=== PATIENT | male | born 1950 | race Caucasian/White ===

== ENCOUNTER 2024-03-19 16:15 | Inpatient (IN) | payer OTHER, MEDICARE, MEDICAID ==
[~2024-03-19] VITALS: Ht 177.8 cm; Wt 63.6 kg
[2024-03-19 16:44] LABS: BASOPHILS # (AUTO) 0.1 X10'3 (0-0.2); BASOPHILS % (AUTO) 1.2 % (0-1); EOSINOPHILS # (AUTO) 0.3 X10'3 (0-0.9); EOSINOPHILS % (AUTO) 3.1 % (0-6); HEMATOCRIT 28.4 % (42.0-52.0); HEMOGLOBIN 9.6 g/dl (14.0-17.9); LYMPHOCYTES # (AUTO) 1.9 X10'3 (1.1-4.8); LYMPHOCYTES % (AUTO) 24.1 % (21-51); MEAN CORPUSCULAR VOLUME 88.3 FL (78-98); MEAN PLATELET VOLUME 8.4 FL (7.4-10.4); MONOCYTES # (AUTO) 0.7 X10'3 (0-0.9); MONOCYTES % (AUTO) 8.4 % (2-12); NEUTROPHILS # (AUTO) 5.1 X10'3 (1.8-7.7); NEUTROPHILS % (AUTO) 63.2 % (42-75); PLATELET COUNT 330 X10'3 (140-440); RED BLOOD COUNT 3.21 X10'6 (4.70-6.10); RED CELL DISTRIBUTION WIDTH 14.7 % (11.5-14.5)
[2024-03-19 17:02] LABS: ALANINE AMINOTRANSFERASE 37 U/L (12-78); ALBUMIN 3.2 G/DL (3.4-5.0); ALBUMIN/GLOBULIN RATIO 0.7 (1.1-1.5); ALKALINE PHOSPHATASE 118 IU/L (46-116); ANION GAP 9 (8-16); ASPARTATE AMINO TRANSFERASE 26 U/L (10-37); BILIRUBIN,TOTAL 0.4 MG/DL (0.1-1.0); BLOOD UREA NITROGEN 42 MG/DL (7-18); CALCIUM 8.8 MG/DL (8.5-10.1); CHLORIDE 105 MMOL/L (99-107); CREATININE 2.21 MG/DL (0.60-1.10); GLUCOSE 133 MG/DL (70-104); POTASSIUM 3.6 MMOL/L (3.5-5.1); SODIUM 140 MMOL/L (135-145); TOTAL CARBON DIOXIDE 25.6 MMOL/L (24-32); eCRCL 28 ML/MIN; eGFR 29 ML/MIN
[2024-03-19 17:13] LABS: PRO BRAIN NATRIURETIC PEPTIDE 23403 PG/ML (0-125)
[2024-03-19] MEDS: aspirin 81mg tab.chew PO ONE (18:34)
[2024-03-19] MEDS ORDERED: carVEDilol 12.5mg tablet PO SCH (18:55)
[2024-03-19] MEDS ORDERED: enoxaparin 100mg/ml syringe SUBCUT ONE (19:00)
[2024-03-19] MEDS: carVEDilol 12.5mg tablet PO ONE (19:13)
[2024-03-19] MEDS: furosemide 10 MG/1 ML 10ml inj IV ONE (19:13)
[2024-03-19] MEDS: enoxaparin 60mg/0.6ml syringe SUBCUT ONE (19:15)
[2024-03-19 19:29] LABS: ETHANOL < 10 MG/DL (<10); MAGNESIUM 2.2 MG/DL (1.5-2.4); PRO BRAIN NATRIURETIC PEPTIDE 24586 PG/ML (0-125)
[2024-03-19 19:40] LABS: APTT 23 SECONDS (22-32); INR 1.1 INR
[2024-03-19] MEDS ORDERED: NO HOME MEDS (20:12)
[2024-03-19] MEDS ORDERED: acetaminophen 325mg tablet PO PRN (21:15)
[2024-03-19] MEDS: PERFLUTREN PROTEIN-A MICROSPHR (Optison) 0.22 MG/ML 3ML VIAL IV ONE (21:15)
[2024-03-19] MEDS ORDERED: magnesium sulf-water 4G/100mL 100 ML IV PRN (21:15)
[2024-03-19] MEDS ORDERED: magnesium sulf-water 2g/50mL 50 ML IV PRN (21:15)
[2024-03-19] MEDS ORDERED: ondansetron/PF 4mg/2ml inj IV PRN (21:15)
[2024-03-19] MEDS ORDERED: morphine 2 MG/ML inj. syringe IV PRN ×2 (21:15)
[2024-03-19] MEDS ORDERED: magnesium Cl slow-release 64mg tablet PO PRN (21:15)
[2024-03-19] MEDS ORDERED: potassium Cl 20 mEq SR tablet PO PRN (21:15)
[2024-03-19] MEDS ORDERED: mag hydrox/Alum hydrox/simeth 30ml oral suspension PO PRN (21:15)
[2024-03-19] MEDS ORDERED: magnesium hydroxide 30ml (MOM) UD suspension PO PRN (21:15)
[2024-03-19] MEDS ORDERED: potassium Cl 40MEQ/1/2NS 520ml 520 ML IV PRN (21:15)
[2024-03-20] MEDS: labetalol 20mg/4ml (5mg/ml) syringe IV ONE (02:16)
[2024-03-20 02:34] LABS: BASOPHILS # (AUTO) 0.1 X10'3 (0-0.2); BASOPHILS % (AUTO) 1.4 % (0-1); EOSINOPHILS # (AUTO) 0.4 X10'3 (0-0.9); EOSINOPHILS % (AUTO) 5.5 % (0-6); HEMATOCRIT 27.2 % (42.0-52.0); LYMPHOCYTES % (AUTO) 24.7 % (21-51); MEAN CORPUSCULAR HEMOGLOBIN 29.1 PG (27.0-31.0); MEAN CORPUSCULAR HGB CONC 32.9 g/dL (33.0-36.5); MEAN CORPUSCULAR VOLUME 88.5 FL (78-98); MEAN PLATELET VOLUME 8.3 FL (7.4-10.4); MONOCYTES # (AUTO) 0.8 X10'3 (0-0.9); NEUTROPHILS # (AUTO) 4.7 X10'3 (1.8-7.7); NEUTROPHILS % (AUTO) 58.4 % (42-75); PLATELET COUNT 313 X10'3 (140-440); RED BLOOD COUNT 3.07 X10'6 (4.70-6.10); RED CELL DISTRIBUTION WIDTH 14.6 % (11.5-14.5); WHITE BLOOD COUNT 8.1 X10'3 (4.5-11.0)
[2024-03-20 02:54] LABS: ALANINE AMINOTRANSFERASE 32 U/L (12-78); ALBUMIN/GLOBULIN RATIO 0.7 (1.1-1.5); ALKALINE PHOSPHATASE 105 IU/L (46-116); ANION GAP 9 (8-16); ASPARTATE AMINO TRANSFERASE 23 U/L (10-37); BILIRUBIN,TOTAL 0.5 MG/DL (0.1-1.0); BLOOD UREA NITROGEN 43 MG/DL (7-18); BUN/CREATININE RATIO 19.5 (10.0-20.0); CALCIUM 8.1 MG/DL (8.5-10.1); CHLORIDE 108 MMOL/L (99-107); CHOL/HDL RATIO 2.7 (0.00-4.99); CHOLESTEROL 181 MG/DL (0-200); CREATININE 2.21 MG/DL (0.60-1.10); GLUCOSE 105 MG/DL (70-104); HDL CHOLESTEROL 66 MG/DL (35-60); LDL CHOLESTEROL 105 MG/DL (50-100); POTASSIUM 3.4 MMOL/L (3.5-5.1); SODIUM 144 MMOL/L (135-145); TOTAL PROTEIN 7.4 G/DL (6.4-8.2); TRIGLYCERIDES 59 MG/DL (20-135); eCRCL 28 ML/MIN; eGFR 29 ML/MIN
[2024-03-20] MEDS: hydrALAZINE 20mg/ml inj. IV ONE (05:56)
[2024-03-20 06:38] VITALS: BP 159/82; PULSE 70; RESP 15; O2SAT 95
[2024-03-20] MEDS: furosemide 10 MG/1 ML 10ml inj IV SCH (07:43)
[2024-03-20] MEDS: potassium Cl 20 mEq SR tablet PO PRN (07:43)
[2024-03-20] MEDS ORDERED: albuterol 2.5 MG/3 ML nebule NEB PRN (07:45)
[2024-03-20] MEDS: K and/or MAG REPLACEMENT MC SCH (07:48)
[2024-03-20] MEDS: heparin, porcine 5000 units/ml vial SQ SCH (07:49)
[2024-03-20] MEDS: docusate sod 100mg capsule PO SCH (07:49)
[2024-03-20] MEDS ORDERED: budesonide 0.5mg/2ml UD nebule IH SCH (08:00)
[2024-03-20 08:26] LABS: BILIRUBIN,URINE NEGATIVE (Neg); CLARITY,URINE CLEAR (Clear); COLOR,URINE YELLOW (Yellow); GLUCOSE, URINE NEGATIVE (Neg); KETONES,URINE NEGATIVE (Neg); LEUKOCYTE ESTERASE ,URINE NEGATIVE (Neg); NITRITES, URINE NEGATIVE (Neg); OCCULT BLOOD,URINE NEGATIVE (Neg); PH,URINE 6.5 (4.8-8.0); PROTEIN,URINE NEGATIVE (Neg); UROBILINOGEN,URINE 0.2 E.U/dL (0.2-1.0)
[2024-03-20 08:27] LABS: UA COLLECTION TYPE VOIDED
[2024-03-20 08:38] LABS: URINE AMPHETAMINE SCREEN POSITIVE (Neg); URINE BARBITUATE SCREEN NEGATIVE (Neg); URINE BENZODIAZEPINES SCREEN NEGATIVE (Neg); URINE CANNABINOID SCREEN NEGATIVE (Neg); URINE COCAINE SCREEN NEGATIVE (Neg); URINE METHADONE SCREEN NEGATIVE (Neg); URINE OPIATE SCREEN NEGATIVE (Neg); URINE PHENCYCLIDINE SCREEN NEGATIVE (Neg)
[2024-03-20 10:53] VITALS: TEMP 97.8
[2024-03-20] MEDS ORDERED: ipratropium/albuterol 3ml nebule NEB SCH (11:00)
== END 2024-03-20 10:53 | disposition left against medical advice (07) | DRG 280 ==
LOC: ER 16:16 → ED HOLD 19:48
PROVIDERS: ADMIT Surgery; ATTEND Family Medicine
DX: I13.0 Hypertensive heart and chronic kidney disease with heart failure and stage 1 through stage 4 chronic kidney disease, or unspecified chronic kidney disease (principal); G93.41 Metabolic encephalopathy; I21.A1 Myocardial infarction type 2; I50.23 Acute on chronic systolic (congestive) heart failure; N17.9 Acute kidney failure, unspecified; E78.00 Pure hypercholesterolemia, unspecified; Z53.21 Procedure and treatment not carried out due to patient leaving prior to being seen by health care provider; F17.210 Nicotine dependence, cigarettes, uncomplicated; I42.7 Cardiomyopathy due to drug and external agent; N18.9 Chronic kidney disease, unspecified; I34.0 Nonrheumatic mitral (valve) insufficiency; F15.10 Other stimulant abuse, uncomplicated
CPT/HCPCS: 36415; 71045; 80053; 80061; 80305; 80320; 81003; 82140; 83735; 83880; 84132; 84484; 85025; 85610; 85730; 93005; 93306; 99291; A6590; G0378; J0360; J1650; J1940; J3490

== ENCOUNTER 2024-11-01 18:40 | Emergency (ER) | payer OTHER, MEDICARE, MEDICAID ==
[~2024-11-01 18:40] MED LIST: NO HOME MEDS
== END 2024-11-01 19:45 | disposition left against medical advice (07) ==
LOC: ER 18:41
DX: K59.00 Constipation, unspecified (principal); Z53.21 Procedure and treatment not carried out due to patient leaving prior to being seen by health care provider